=== PATIENT | female | born 1965 | race Caucasian/White ===

== ENCOUNTER 2017-05-18 20:02 | Emergency (ER) | payer MEDICAID ==
[2017-05-18 21:09] LABS: Basophils # (Auto) 0.1 K/mm3 (0.0-0.1); Basophils % (Auto) 0.7 % (0.0-1.8); Eosinophils # (Auto) 0.2 K/mm3 (0.0-0.4); Eosinophils % (Auto) 2.2 % (0.0-4.3); Hematocrit 31.4 % (30.3-42.9); Hemoglobin 10.5 gm/dl (10.1-14.3); Lymphocytes # (Auto) 1.5 K/mm3 (1.2-5.4); Lymphocytes % (Auto) 13.4 % (13.4-35.0); Mean Corpuscular HGB Conc 33 % (30-34); Mean Corpuscular Hemoglobin 30 pg (28-32); Mean Corpuscular Volume 90 fl (79-97); Monocytes # (Auto) 0.8 K/mm3 (0.0-0.8); Monocytes % (Auto) 6.8 % (0.0-7.3); Platelet Count 327 K/mm3 (140-440); Red Cell Distribution Width 14.6 % (13.2-15.2)
[2017-05-18] MEDS ORDERED: NACL 0.9% 1000 ML 1,000 ML IV ONE (21:23)
[2017-05-18] MEDS ORDERED: ZOFRAN IV ONE (21:23)
[2017-05-18] MEDS ORDERED: LOMOTIL PO ONE (21:23)
[2017-05-18] MEDS ORDERED: BENTYL IM ONE (21:24)
[2017-05-18 21:29] LABS: Alanine Aminotransferase 20 units/L (7-56); Albumin 3.7 g/dL (3.9-5); BUN/Creatinine Ratio 27; Blood Urea Nitrogen 24 mg/dL (7-17); Calcium 8.3 mg/dL (8.4-10.2); Hemolysis Index 36
--- NOTE | 2017-05-18 21:33 | Emergency Department Report ---
HPI - General Chief Complaint: Abdominal Pain Time Seen by Provider: 05/18/17 21:15 - HPI HPI: Room 4 The patient is a 51-year-old female presenting with a chief complaint diarrhea. The patient states for the past 4 days she's had frequent diarrhea. The patient states she also had intermittent nausea and vomiting. Patient states she's had sharp intermittent midepigastric abdominal pain. Patient denies fever or dysuria. Patient denies any recent antibiotic use. Patient denies having any sick contacts. The patient states she has been receiving steroid injections for her chronic back pain 04/30/2017 and 05/14/2017 Location: Gastrointestinal system Duration: 4 days Quality: Sharp Severity: Currently 0/10 Modifying factors: [see above] Context: [see above] Mode of transportation: [not driving] ED Past Medical Hx - Past Medical History Hx Arthritis: Yes Additional medical history: Chronic Back Pain, Fibormylagia - Surgical History Additional Surgical History: Right Kidney - Family History Family history: no significant - Social History Smoking Status: Current Every Day Smoker (1/2 pack per day) Substance Use Type: None - Medications Home Medications: Home Medications Medication Instructions Recorded Confirmed Last Taken Type Flexeril 5 MG TAB 1 tab PO BID 05/18/17 05/18/17 Unknown History Gabapentin 600 mg PO TID 05/18/17 05/18/17 Unknown History Tylenol Arthritis 1 tab PO QID 05/18/17 05/18/17 Unknown History Diphenoxylate/Atropine [Lomotil] 2 tab PO QID PRN #20 tablet 05/19/17 Unknown Rx HYDROcodone/APAP 5-325 [[place] 1 - 2 each PO Q6HR PRN #10 tablet 05/19/17 Unknown Rx 5/325] Promethazine [Phenergan TAB] 25 mg PO Q6HR PRN #20 tab 05/19/17 Unknown Rx Promethazine [Phenergan] 25 mg MI Q6HR PRN #5 supp.rect 05/19/17 Unknown Rx ED Review of Systems ROS: Stated complaint: VOMIOTING,DIAHRREA,WEAKNESS Other details as noted in HPI Constitutional: denies: fever Gastrointestinal: abdominal pain, nausea, vomiting, diarrhea Genitourinary: denies: dysuria Physical Exam - Physical Exam Vital Signs: Vital Signs 05/18/17 05/18/17 05/18/17 20:36 21:18 21:20 Temperature 98.1 F 97.8 F Pulse Rate 97 H 85 Respiratory 18 18 18 Rate Blood Pressure 144/89 Blood Pressure 130/67 [Left] O2 Sat by Pulse 97 96 96 Oximetry Physical Exam: GENERAL: The patient is well-developed well-nourished female lying on stretcher not appearing to be in acute distress. [] HEENT: Normocephalic. Atraumatic. Extraocular motions are intact. Patient has moist mucous membranes. NECK: Supple. Trachea midline CHEST/LUNGS: Clear to auscultation. There is no respiratory distress noted. HEART/CARDIOVASCULAR: Regular. There is no tachycardia. There is no gallop rub or murmur. ABDOMEN: Abdomen is soft, nontender. Patient has normal bowel sounds. There is no abdominal distention. SKIN: There is no rash. There is no edema. There is no diaphoresis. NEURO: The patient is awake, alert, and oriented. The patient is cooperative. The patient has normal speech MUSCULOSKELETAL: There is no evidence of acute injury. ED Course Vital Signs 05/18/17 05/18/17 05/18/17 20:36 21:18 21:20 Temperature 98.1 F 97.8 F Pulse Rate 97 H 85 Respiratory 18 18 18 Rate Blood Pressure 144/89 Blood Pressure 130/67 [Left] O2 Sat by Pulse 97 96 96 Oximetry ED Medical Decision Making - Lab Data Result diagrams: 05/18/17 20:56 05/18/17 20:56 Laboratory Tests 05/18/17 05/18/17 05/18/17 20:56 20:56 20:56 WBC 11.2 H RBC 3.50 L Hgb 10.5 Hct 31.4 MCV 90 MCH 30 MCHC 33 RDW 14.6 Plt Count 327 Lymph % (Auto) 13.4 [place] % (Auto) 6.8 Eos % (Auto) 2.2 Baso % (Auto) 0.7 Lymph # 1.5 [place] # 0.8 Eos # 0.2 Baso # 0.1 Seg Neutrophils % 76.9 H Seg Neutrophils # 8.6 H Sodium 141 Potassium 4.8 Chloride 103.2 Carbon Dioxide 28 Anion Gap 15 BUN 24 H Creatinine 0.9 Estimated GFR > 60 BUN/Creatinine Ratio 27 Glucose 102 H Calcium 8.3 L Total Bilirubin < 0.20 AST 20 ALT 20 Alkaline Phosphatase 109 Total Protein 6.2 L Albumin 3.7 L Albumin/Globulin Ratio 1.5 Lipase HCG, Qual Negative 05/18/17 21:22 WBC RBC Hgb Hct MCV MCH MCHC RDW Plt Count Lymph % (Auto) [place] % (Auto) Eos % (Auto) Baso % (Auto) Lymph # [place] # Eos # Baso # Seg Neutrophils % Seg Neutrophils # Sodium Potassium Chloride Carbon Dioxide Anion Gap BUN Creatinine Estimated GFR BUN/Creatinine Ratio Glucose Calcium Total Bilirubin AST ALT Alkaline Phosphatase Total Protein Albumin Albumin/Globulin Ratio Lipase 22 HCG, Qual Laboratory Tests 05/18/17 05/18/17 05/18/17 20:56 20:56 20:56 WBC 11.2 H RBC 3.50 L Hgb 10.5 Hct 31.4 MCV 90 MCH 30 MCHC 33 RDW 14.6 Plt Count 327 Lymph % (Auto) 13.4 [place] % (Auto) 6.8 Eos % (Auto) 2.2 Baso % (Auto) 0.7 Lymph # 1.5 [place] # 0.8 Eos # 0.2 Baso # 0.1 Seg Neutrophils % 76.9 H Seg Neutrophils # 8.6 H Sodium 141 Potassium 4.8 Chloride 103.2 Carbon Dioxide 28 Anion Gap 15 BUN 24 H Creatinine 0.9 Estimated GFR > 60 BUN/Creatinine Ratio 27 Glucose 102 H Calcium 8.3 L Total Bilirubin < 0.20 AST 20 ALT 20 Alkaline Phosphatase 109 Total Protein 6.2 L Albumin 3.7 L Albumin/Globulin Ratio 1.5 Lipase HCG, Qual Negative Urine Color Urine Turbidity Urine pH Ur Specific [place] Urine Protein Urine Glucose (UA) Urine Ketones Urine Blood Urine Nitrite Urine Bilirubin Urine Urobilinogen Ur Leukocyte Esterase Urine WBC (Auto) Urine RBC (Auto) U Epithel Cells (Auto) Urine Bacteria (Auto) 05/18/17 05/18/17 21:22 23:42 WBC RBC Hgb Hct MCV MCH MCHC RDW Plt Count Lymph % (Auto) [place] % (Auto) Eos % (Auto) Baso % (Auto) Lymph # [place] # Eos # Baso # Seg Neutrophils % Seg Neutrophils # Sodium Potassium Chloride Carbon Dioxide Anion Gap BUN Creatinine Estimated GFR BUN/Creatinine Ratio Glucose Calcium Total Bilirubin AST ALT Alkaline Phosphatase Total Protein Albumin Albumin/Globulin Ratio Lipase 22 HCG, Qual Urine Color Yellow Urine Turbidity Clear Urine pH 6.0 Ur Specific [place] 1.044 H Urine Protein <15 mg/dl Urine Glucose (UA) Neg Urine Ketones Neg Urine Blood Sm Urine Nitrite Neg Urine Bilirubin Neg Urine Urobilinogen < 2.0 Ur Leukocyte Esterase Tr Urine WBC (Auto) 1.0 Urine RBC (Auto) 3.0 U Epithel Cells (Auto) 2.0 Urine Bacteria (Auto) 2+ - Radiology Data Radiology results: report reviewed (CT abdomen and pelvis), image reviewed (CT abdomen and pelvis) [facility] [address] [place] [address] Cat Scan Report Signed Patient: TAMERA CID MR#: [id number] : 1965 Acct:[id number] Age/Sex: 51 / F ADM Date: 05/18/17 Loc: ED Attending Dr: Ordering Physician: MONICA MANRIQUE MD Date of Service: 05/18/17 Procedure(s): CT abdomen pelvis w con Accession Number(s): [id number] cc: MONICA MANRIQUE MD FINAL REPORT EXAM: CT ABDOMEN PELVIS W CON HISTORY: epigastric abdominal pain, nausea vomiting diarrhea TECHNIQUE: Standard enhanced CT of the abdomen and pelvis. Coronal and sagittal reconstruction was also performed. Delayed imaging through the kidneys and bladder was obtained. Contrast: 100 mL Omnipaque 300 given IV. PRIORS: None. FINDINGS: There is a low-density 4.4 x 3.2 cm anterior peripelvic cyst in the midpole of the left kidney (axial image 26, series 4). There is an extrarenal pelvis in the right kidney but no dilatation of the ureter is seen. Within the abdomen, the liver, spleen, pancreas, gallbladder, and adrenal gland are unremarkable. No evidence for retroperitoneal or pelvic lymphadenopathy is seen. The bowel loops have normal caliber. No soft tissue mass, fluid collection, inflammatory change, or free air is seen within the abdomen or pelvis. The appendix is not visualized. Numerous surgical clips are present in the right retroperitoneal region. Within the pelvis, the bladder is unremarkable. The uterus is normal. No evidence for mass or lymphadenopathy is seen in the pelvis. Images through the upper abdomen include the lung bases which are expanded and clear. There is a large retrocardiac hiatal hernia. Bony structures show no focal abnormalities. Bilateral facet joint degenerative changes are noted in the lumbar spine. IMPRESSION: 1. no acute intra-abdominal process noted. 2. Large retrocardiac hiatal hernia 3. 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 Anterior peripelvic cyst in the midpole left kidney Transcribed By: [facility] Dictated By: AUDRA VENTURA MD Electronically Authenticated By: AUDRA VENTURA MD Signed Date/Time: 05/18/172316 DD/ 16 TD/TT: 05/18/172316 - Differential Diagnosis gastroenteritis, partial small bowel obstruction, pancreatitis, cholelithia Critical care attestation.: If time is entered above; I have spent that time in minutes in the direct care of this critically ill patient, excluding procedure time. ED Disposition Clinical Impression: Acute gastroenteritis Disposition: - TO HOME OR SELFCARE Is pt being admited?: No Does the pt Need Aspirin: No Condition: Stable Instructions: Abdominal Pain (ED), Gastroenteritis (ED), Acute Nausea and Vomiting (ED) Additional Instructions: Return to the emergency department immediately should you develop worsening symptoms, fever, inability to tolerate food or liquid or any other concerns. Prescriptions: Diphenoxylate/Atropine [Lomotil] 2 tab PO QID PRN #20 tablet PRN Reason: Diarrhea HYDROcodone/APAP 5-325 [[place] 5/325] 1 - 2 each PO Q6HR PRN #10 tablet PRN Reason: Pain Promethazine [Phenergan TAB] 25 mg PO Q6HR PRN #20 tab PRN Reason: Nausea Promethazine [Phenergan] 25 mg MI Q6HR PRN #5 supp.rect PRN Reason: Vomiting Referrals: DANIELLA BLACK MD [Staff Physician] - 3-5 Days (Dr. Black is a ginger farmer. Please follow up with him for further evaluation) Time of Disposition: 00:57
[2017-05-18] MEDS ORDERED: NACL ONE (21:46)
[2017-05-18 22:21] VITALS: BP 136/70
--- NOTE | 2017-05-18 23:22 | Cat Scan Report ---
FINAL REPORT EXAM: CT ABDOMEN PELVIS W CON HISTORY: epigastric abdominal pain, nausea vomiting diarrhea TECHNIQUE: Standard enhanced CT of the abdomen and pelvis. Coronal and sagittal reconstruction was also performed. Delayed imaging through the kidneys and bladder was obtained. Contrast: 100 mL Omnipaque 300 given IV. PRIORS: None. FINDINGS: There is a low-density 4.4 x 3.2 cm anterior peripelvic cyst in the midpole of the left kidney (axial image 26, series 4). There is an extrarenal pelvis in the right kidney but no dilatation of the ureter is seen. Within the abdomen, the liver, spleen, pancreas, gallbladder, and adrenal gland are unremarkable. No evidence for retroperitoneal or pelvic lymphadenopathy is seen. The bowel loops have normal caliber. No soft tissue mass, fluid collection, inflammatory change, or free air is seen within the abdomen or pelvis. The appendix is not visualized. Numerous surgical clips are present in the right retroperitoneal region. Within the pelvis, the bladder is unremarkable. The uterus is normal. No evidence for mass or lymphadenopathy is seen in the pelvis. Images through the upper abdomen include the lung bases which are expanded and clear. There is a large retrocardiac hiatal hernia. Bony structures show no focal abnormalities. Bilateral facet joint degenerative changes are noted in the lumbar spine. IMPRESSION: 1. no acute intra-abdominal process noted. 2. Large retrocardiac hiatal hernia 3. 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 Anterior peripelvic cyst in the midpole left kidney
[2017-05-19 00:40] LABS: Bacteria,Urine 2+ /HPF (Negative); Bilirubin,Urine NEG (Negative); Blood,Urine SM (Negative); Color,Urine Yellow (Yellow); Protein,Urine <15 mg/dL mg/dL (Negative); Urobilinogen,Urine < 2.0 mg/dL (<2.0)
== END 2017-05-19 01:14 | disposition home or self-care (01) ==
LOC: ED 20:02
DX: K52.9 Noninfective gastroenteritis and colitis, unspecified (principal); F17.200 Nicotine dependence, unspecified, uncomplicated
CPT/HCPCS: 36415; 74177; 80053; 81001; 83690; 84703; 85025; 96361; 96372; 96374; 99284; J0500; J2405; J7030; Q9967

== ENCOUNTER 2017-09-03 16:54 | Emergency (ER) | payer MEDICAID ==
[2017-09-03] MEDS ORDERED: NORCO 5/325 PO ONE (21:12)
--- NOTE | 2017-09-03 21:12 | Emergency Department Report ---
ED ENT HPI - General Chief complaint: Dental/Oral Stated complaint: ABBSESS Time Seen by Provider: 09/03/17 20:27 Source: patient Mode of arrival: Ambulatory Limitations: No Limitations - History of Present Illness Initial comments: This is a 52-year-old female who presents with dental pain and right side facial swelling that started last night. Patient reports history of dental pain but does not have insurance to follow up with the dentist. She is currently taking an [id number] and serious with no improvement of symptoms. Patient states symptoms got worse last night. She woke up this morning with right-sided facial swelling. Patient denies fever, nausea or vomiting, difficulty swallowing or chewing, sore throat, chest pain, and drooling. MD complaint: tooth pain -: Last night Location: tooth # (#29 and 27) Severity: severe Severity scale (0 -10): 10 Quality: stabbing, aching, constant Consistency: constant Improves with: none Worsens with: eating, movement Context- Dental: history of dental caries, poor dental care Associated Symptoms: gum swelling, toothache. denies: fever, cough, pain with swallowing, sore throat, tinnitus, hearing loss, discharge from ear, rhinorrhea - Related Data Home Medications Medication Instructions Recorded Confirmed Last Taken Flexeril 5 MG TAB 1 tab PO BID 05/18/17 05/18/17 Unknown Gabapentin 600 mg PO TID 05/18/17 05/18/17 Unknown Tylenol Arthritis 1 tab PO QID 05/18/17 05/18/17 Unknown Previous Rx's Medication Instructions Recorded Last Taken Type Diphenoxylate/Atropine [Lomotil] 2 tab PO QID PRN #20 tablet 05/19/17 Unknown Rx HYDROcodone/APAP 5-325 [[place] 1 - 2 each PO Q6HR PRN #10 tablet 05/19/17 Unknown Rx 5/325] Promethazine [Phenergan TAB] 25 mg PO Q6HR PRN #20 tab 05/19/17 Unknown Rx Promethazine [Phenergan] 25 mg [place] Q6HR PRN #5 supp.rect 05/19/17 Unknown Rx Clindamycin [Clindamycin CAP] 300 mg PO Q8H 7 Days #21 cap 09/03/17 Unknown Rx Ibuprofen [Motrin 800 MG tab] 800 mg PO Q8HR PRN #15 tablet 09/03/17 Unknown Rx traMADol [Ultram 50 MG tab] 50 mg PO Q6HR PRN #15 tablet 09/03/17 Unknown Rx Allergies Allergy/AdvReac Type Severity Reaction Status Date / Time No Known Allergies Allergy Verified 09/03/17 16:59 ED Dental HPI - General Chief complaint: Dental/Oral Stated complaint: ABBSESS Time Seen by Provider: 09/03/17 20:27 Source: patient Mode of arrival: Ambulatory Limitations: No Limitations - Related Data Home Medications Medication Instructions Recorded Confirmed Last Taken Flexeril 5 MG TAB 1 tab PO BID 05/18/17 05/18/17 Unknown Gabapentin 600 mg PO TID 05/18/17 05/18/17 Unknown Tylenol Arthritis 1 tab PO QID 05/18/17 05/18/17 Unknown Previous Rx's Medication Instructions Recorded Last Taken Type Diphenoxylate/Atropine [Lomotil] 2 tab PO QID PRN #20 tablet 05/19/17 Unknown Rx HYDROcodone/APAP 5-325 [[place] 1 - 2 each PO Q6HR PRN #10 tablet 05/19/17 Unknown Rx 5/325] Promethazine [Phenergan TAB] 25 mg PO Q6HR PRN #20 tab 05/19/17 Unknown Rx Promethazine [Phenergan] 25 mg VA Q6HR PRN #5 supp.rect 05/19/17 Unknown Rx Clindamycin [Clindamycin CAP] 300 mg PO Q8H 7 Days #21 cap 09/03/17 Unknown Rx Ibuprofen [Motrin 800 MG tab] 800 mg PO Q8HR PRN #15 tablet 09/03/17 Unknown Rx traMADol [Ultram 50 MG tab] 50 mg PO Q6HR PRN #15 tablet 09/03/17 Unknown Rx Allergies Allergy/AdvReac Type Severity Reaction Status Date / Time No Known Allergies Allergy Verified 09/03/17 16:59 ED Review of Systems ROS: Stated complaint: ABBSESS Other details as noted in HPI Constitutional: denies: chills, fever ENT: dental pain. denies: ear pain, throat pain, hearing loss, epistaxis, congestion Respiratory: denies: cough, shortness of breath, wheezing Cardiovascular: denies: chest pain, palpitations Gastrointestinal: denies: abdominal pain, nausea, vomiting, diarrhea Neurological: denies: headache, weakness, paresthesias Psychiatric: denies: anxiety, depression ED Past Medical Hx - Past Medical History Hx Arthritis: Yes Additional medical history: Chronic Back Pain, Fibormylagia - Surgical History Additional Surgical History: Right Kidney - Social History Smoking Status: Current Every Day Smoker Substance Use Type: None - Medications Home Medications: Home Medications Medication Instructions Recorded Confirmed Last Taken Type Flexeril 5 MG TAB 1 tab PO BID 05/18/17 05/18/17 Unknown History Gabapentin 600 mg PO TID 05/18/17 05/18/17 Unknown History Tylenol Arthritis 1 tab PO QID 05/18/17 05/18/17 Unknown History Diphenoxylate/Atropine [Lomotil] 2 tab PO QID PRN #20 tablet 05/19/17 Unknown Rx HYDROcodone/APAP 5-325 [[place] 1 - 2 each PO Q6HR PRN #10 tablet 05/19/17 Unknown Rx 5/325] Promethazine [Phenergan TAB] 25 mg PO Q6HR PRN #20 tab 05/19/17 Unknown Rx Promethazine [Phenergan] 25 mg [place] Q6HR PRN #5 supp.rect 05/19/17 Unknown Rx Clindamycin [Clindamycin CAP] 300 mg PO Q8H 7 Days #21 cap 09/03/17 Unknown Rx Ibuprofen [Motrin 800 MG tab] 800 mg PO Q8HR PRN #15 tablet 09/03/17 Unknown Rx traMADol [Ultram 50 MG tab] 50 mg PO Q6HR PRN #15 tablet 09/03/17 Unknown Rx ED Physical Exam - General Limitations: No Limitations General appearance: alert, in no apparent distress - ENT ENT exam: Present: normal orophraynx, mucous membranes moist, other (dental caries in #27 and 29, surrounding mucosal swelling, and tenderness) - Cardiovascular Cardiovascular Exam: Present: regular rate, normal rhythm. Absent: systolic murmur, diastolic murmur, rubs, gallop - GI/Abdominal GI/Abdominal exam: Present: soft, normal bowel sounds - Neurological Exam Neurological exam: Present: alert, oriented X3 - Psychiatric Psychiatric exam: Present: normal affect, normal mood - Skin Skin exam: Present: warm, dry, intact, normal color. Absent: rash ED Course Vital Signs 09/03/17 09/03/17 16:59 21:17 Temperature 98.3 F Pulse Rate 107 H Respiratory 16 16 Rate Blood Pressure 134/89 O2 Sat by Pulse 98 Oximetry ED Medical Decision Making - Medical Decision Making This is a 52-year-old female that presents with toothache and right side facial swelling for 1 day. Patient is stable and was examined by me. Given norco once in ER. Susceptible of dental dental caries. Discussed plan with patient. She agreed with ER plan. Discharged home with clindamycin, ibuprofen, and tramadol. Follow up with dentist and referral to dentist in 24-72 hours. Critical care attestation.: If time is entered above; I have spent that time in minutes in the direct care of this critically ill patient, excluding procedure time. ED Disposition Clinical Impression: Dental caries, Toothache, Swelling of right side of face Disposition: TO HOME OR SELFCARE Is pt being admited?: No Does the pt Need Aspirin: No Condition: Stable Instructions: Dental Caries (ED), Toothache (ED) Additional Instructions: Complete all days of clindamycin as prescribed for 14 days. Follow up with Dentist at [facility] in 24-72 hours. Prescriptions: Clindamycin [Clindamycin CAP] 300 mg PO Q8H 7 Days #21 cap Ibuprofen [Motrin 800 MG tab] 800 mg PO Q8HR PRN #15 tablet PRN Reason: Pain, Moderate (4-6) traMADol [Ultram 50 MG tab] 50 mg PO Q6HR PRN #15 tablet PRN Reason: Pain Referrals: DENYS WHITE MD [Primary Care Provider] - 3-5 Days [facility] [Outside] - 3-5 Days [facility] [Outside] - 3-5 Days [facility] [Outside] - 3-5 Days Forms: Work/School Release Form(ED) Time of Disposition: 21:54 Print Language: [place]
[2017-09-03 22:15] VITALS: BP 152/84
== END 2017-09-03 22:13 | disposition home or self-care (01) ==
LOC: ED 16:54
DX: K08.89 Other specified disorders of teeth and supporting structures (principal); K02.9 Dental caries, unspecified; M19.90 Unspecified osteoarthritis, unspecified site; M79.7 Fibromyalgia; M54.9 Dorsalgia, unspecified; G89.29 Other chronic pain; F17.200 Nicotine dependence, unspecified, uncomplicated
CPT/HCPCS: 99282

== ENCOUNTER 2017-11-09 00:18 | Emergency (ER) | payer MEDICAID ==
[2017-11-09 03:44] LABS: Basophils # (Auto) 0.1 K/mm3 (0.0-0.1); Basophils % (Auto) 0.8 % (0.0-1.8); Eosinophils # (Auto) 0.4 K/mm3 (0.0-0.4); Hematocrit 37.5 % (30.3-42.9); Hemoglobin 12.5 gm/dl (10.1-14.3); Lymphocytes # (Auto) 1.5 K/mm3 (1.2-5.4); Lymphocytes % (Auto) 15.3 % (13.4-35.0); Mean Corpuscular HGB Conc 33 % (30-34); Mean Corpuscular Hemoglobin 31 pg (28-32); Mean Corpuscular Volume 93 fl (79-97); Monocytes # (Auto) 0.6 K/mm3 (0.0-0.8); Monocytes % (Auto) 6.5 % (0.0-7.3); Platelet Count 295 K/mm3 (140-440); Red Blood Count 4.05 M/mm3 (3.65-5.03); Red Cell Distribution Width 14.4 % (13.2-15.2)
[2017-11-09 03:46] LABS: Bacteria,Urine 4+ /HPF (Negative); Bilirubin,Urine NEG (Negative); Blood,Urine NEG (Negative); Color,Urine Yellow (Yellow); Hyaline Casts,Urine 4 /LPF; Mucus,Urine FEW /HPF; Protein,Urine <15 mg/dL mg/dL (Negative); Urobilinogen,Urine < 2.0 mg/dL (<2.0)
[2017-11-09 04:29] LABS: Albumin 4.1 g/dL (3.9-5); Calcium 9.8 mg/dL (8.4-10.2)
[2017-11-09 05:44] VITALS: BP 164/95
== END 2017-11-09 03:10 | disposition left against medical advice (07) ==
LOC: ED 00:18
DX: R10.9 Unspecified abdominal pain (principal); Z53.21 Procedure and treatment not carried out due to patient leaving prior to being seen by health care provider
CPT/HCPCS: 36415; 80053; 81001; 83880; 85025